=== PATIENT | male | born 1970 | race Caucasian/White ===

== ENCOUNTER 2022-01-05 00:02 | Emergency (ER) | payer SELFPAY ==
[2022-01-05 00:07] VITALS: BP 174/95; PULSE 79; RESP 16; TEMP 36.4; O2SAT 98
--- NOTE | 2022-01-05 00:23 | ED_ITS ---
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 He was at work all day, he notices back was giving him some pain. It was worse tonight after he had stopped working. He did take some Tylenol today it least 2 or 3 doses but says it really did not help him. He describes spasm in his back, with no numbness tingling or weakness into his legs. There is no history of bowel or bladder symptoms fevers chills or sweats or history of malignancy. He tells me he was given muscle relaxants in the past for his back but this caused him to have problems breathing. Ibuprofen to give him ulcers in the remote past. He is requesting hydrocodone. MD elicited complaint: back pain Pertinent past history: prior back pain Timing: constant Severity: moderate Similar Symptoms Previously: Yes Quality: stabbing Location: lumbar spine Radiation: none Relieving factors: none Associated symptoms: denies other symptoms Related Data Home Medications Medication Instructions Recorded Confirmed No Known Home Medications 01/05/22 01/05/22 Allergies Allergy/AdvReac Type Severity Reaction Status Date / Time ibuprofen Allergy Intermediate Ulcer Verified 01/05/22 00:12 muscle relaxer Allergy Intermediate Hives Uncoded 01/05/22 00:12 Review of Systems Status of ROS: Reports: 6 or more systems reviewed and unremarkable except as noted in History and below Const: Denies: fever, chills, change in weight or fatigue GI: Denies: abdominal pain, nausea or vomiting : Denies: painful urination, urinary frequency or urinary urgency Musculo: Reports: back pain; Denies: extremity pain, extremity swelling, joint pain, limited range of motion, joint swelling or muscle weakness Endo: Denies: fatigue PFSH PFSH Medical History No significant past medical history Surgical History No significant past surgical history Family History Other No significant past surgical history Social History Smoking Status: Current every day smoker What tobacco products do you use: cigarettes Do you use any of these nicotine containing products: None Second hand tobacco smoke exposure: Yes How often do you have a drink containing alcohol: never AUDIT-C Alcohol total score: 0 Non-prescribed substance use: denies use service: No Exam Const: Vital Signs, click to edit/add: Vital Signs - 24 hr 01/05/22 00:07 Temperature 97.6 F Pulse Rate [Left P ulse Oximeter] 79 Respiratory Rate 16 Blood Pressure [Ri ght Upper Arm] 174/95 H Pulse Oximetry 98 Documenting provider has reviewed patient's vital signs: yes Common normals: no apparent distress, average body habitus, oriented x3, no limitations, healthy appearing, alert and well nourished General appearance: cooperative and comfortable Nutritional appearance: obese and overweight Orientation/consciousness: Yes awake and Yes oriented to person HENMT: Common normals: normocephalic Head and scalp: normocephalic Lymph: Lymphatic: no lymphadenopathy noted Resp: Common normals: normal respiratory effort : Common normals: no CVA tenderness Bladder/kidney exam: no CVA tenderness Back & Pelvis: Common normals: no CVA tenderness and straight leg raise negative bilaterally Lumbar spine/lower back: ROM limited, pain with ROM, paraspinal muscle spasm and lumbar scoliosis present (Scoliosis is noted); no lumbar spinal tenderness and no paraspinal muscle tenderness Pelvis: buttocks normal Extremity: Common normals: normal to inspection, full ROM, normal capillary refill and no pedal edema Neuro: Common normals: oriented x3 Sensorium/orientation: awake, alert and oriented to person Sensory exam: sensation present Motor exam: strength 5/5 throughout and no movement abnormalities noted Deep tendon reflexes: Rt Patellar (L4): 1+, Lt Patellar (L4): 1+, Rt Ankle (S1): 1+ and Lt Ankle (S1): 1+ Course Course Hospital Course: I discussed with the patient that narcotics are not indicated for mechanical back pain, would suggest that we try 1 dose of Toradol IM, he was worried about a possible ulcer I explained to him with 1 dose this will not cause this. Ice would be suggested along with more Tylenol. Follow-up with primary care and consideration of physical therapy in even chiropractic manipulation. There are no high risk features here. We did however discuss that his blood pressure is elevated this may be just a pain response but would deem that he needs to be recheck. Vital Signs Vital signs: Initial Vital Signs Temperature 97.6 F 01/05/22 00:07 Temperature Source Temporal Artery Scan 01/05/22 00:07 Pulse Rate 79 01/05/22 00:07 Pulse Rhythm 01/05/22 00:07 Pulse Strength 0+ Absent 01/05/22 00:07 Respiratory Rate 16 01/05/22 00:07 Blood Pressure 174/95 H 01/05/22 00:07 Blood Pressure Mean 121 01/05/22 00:07 Blood Pressure Position Sitting 01/05/22 00:07 Pulse Oximetry 98 01/05/22 00:07 Oxygen Delivery Method 01/05/22 00:07 Vital Signs Temperature 97.6 F 01/05/22 00:07 Pulse Rate 79 01/05/22 00:07 Respiratory Rate 16 01/05/22 00:07 Blood Pressure 174/95 H 01/05/22 00:07 Pulse Oximetry 98 01/05/22 00:07 Temperature 97.6 F 01/05/22 00:07 Pulse Rate 79 01/05/22 00:07 Respiratory Rate 16 01/05/22 00:07 Blood Pressure 174/95 H 01/05/22 00:07 Pulse Oximetry 98 01/05/22 00:07 MDM - Back Pain/Injury MDM Narrative Medical decision making narrative: Life-threatening differential diagnosis considered include: Cauda equina an epidural abscess, other differential diagnosis considered includes sprain, contusion, nerve root entrapment, radiculopathy, muscle spasm, urolithiasis, lumbar fracture, pyelonephritis, appendicitis, biliary colic, as well as other etiologies. The patient denies saddle anesthesia bowel or bladder incontinence or lower extremity weakness, recent weight loss, or history of malignancy. Differential Diagnosis Differential diagnosis: Likely lumbar radiculopathy, strain of lumbar region, pyelonephritis, thoracic back pain, AAA and discitis Discharge Plan Discharge Clinical Impression: Strain of lumbar region Patient Disposition: Home w/ Parent or Adult Condition: Stable Instructions: Acute Low Back Pain (ED) Additional Instructions: Home rest continue with Tylenol 1 g p.o. t.i.d., ice is also helpful he will make this worse. Follow-up with chiropractic manipulation or with primary care. Prescriptions: No Action No Known Home Medications 0RF Stand Alone Forms: [employer] Info Instructions
[2022-01-05] MEDS: KETOROLAC 30 MG/ML inj IM (00:33)
== END 2022-01-05 00:56 ==
LOC: ED 00:35
PROVIDERS: Emergency Provider Family Medicine
DX: S39.012A Strain of muscle, fascia and tendon of lower back, initial encounter (principal)
CPT/HCPCS: 96372; 99283; 99284; J1885